=== PATIENT | female | born 1940 | race Caucasian/White ===

== ENCOUNTER → 2017-03-20 | Outpatient (CLI) | payer OTHER | LOC: CIMAGING 10:53 | PROVIDERS: ATTEND Internal Medicine | DX: Z12.31 Encounter for screening mammogram for malignant neoplasm of breast (principal) | CPT/HCPCS: G0202 ==

== ENCOUNTER 2017-12-16 13:04 | Inpatient (IN) | payer OTHER ==
--- NOTE | 2017-12-16 14:34 | EDPHY ---
H & P Time Seen by Provider: 12/16/17 14:33 HPI/ROS: CHIEF COMPLAINT: Bloody diarrhea HISTORY OF PRESENT ILLNESS: Patient had symptoms starting on Sunday afternoon at the grocery store when she had some right-sided abdominal pain lasted 2 hr. Subsequent to that she had about 10 episodes of blood and diarrhea that evening and about 6 or 8 times today. Patient describes mainly blood today and only trace diarrhea. Associated with feeling dizzy and lightheaded and some abdominal bloating but no pain today. Symptoms moderate to severe. REVIEW OF SYSTEMS: Eye: no change in vision ENT: no sore throat Cardiac: no chest pain or syncope Pulmonary: no cough or SOB Abdomen: HPI Musculoskeletal: no back pain Skin: no rash Neuro: no headache Constitutional: no fever : no urinary symptoms A comprehensive 10 point review of systems is otherwise negative aside from elements mentioned in the history of present illness. PAST MEDICAL HISTORY: Appendectomy and hysterectomy, mitral valve prolapse. Family history: Cancer and gets colonoscopy about every 5 years, is due this year, has known diverticuli. Social history: Nonsmoker General Appearance: Alert and conversant, cooperative. Eyes: No scleral icterus. ENT, Mouth: Slightly dry mucous membranes. Respiratory: Normal respiratory effort, breath sounds equal, lungs are clear to auscultation. Cardiovascular: Regular rate and rhythm. Gastrointestinal: Mild right lower quadrant tenderness, no rebound or guarding , bowel sounds present. Neurological: Alert, face symmetric, normal motor and sensory in extremities. Skin: Warm and dry, no rashes. Musculoskeletal: No peripheral edema. Psychiatric: Not agitated. Emergency Department course/MDM: I-STAT and abdominal CT scanning. IV fluid hydration for diarrhea and dizziness. 1450: 57 SBP, hr down to 33. Junctional rate on the monitor without P waves. This is in context of trying to adjust her IV, more likely vasovagal. However she was junctional at 33 with a very low blood pressure felt dizzy and lightheaded, 0.5 mg IV atropine. At 2:55 p.m. Her heart rate is 90 and her blood pressure is 92 systolic. 1613: CT scan shows diverticulosis but no evidence of colitis per Dr. Melchor. More likely acute lower GI bleed. Event above was more likely vagal then primary cardiac. Discussed with patient, she sees Dr. Isma Hemphill, admission with GI consultation 1626: Discussed with Dr. Alexander, will consult. Smoking Status: Never smoked Constitutional: Initial Vital Signs Temperature (C) 36.5 C 12/16/17 13:22 Heart Rate 73 12/16/17 13:22 Respiratory Rate 16 12/16/17 13:22 Blood Pressure 147/107 H 12/16/17 13:22 O2 Sat (%) 96 12/16/17 13:22 O2 Delivery Mode Nasal Cannula O2 (L/minute) 2 Allergies/Adverse Reactions: CERTAIN METALS Allergy (Mild, Uncoded 12/16/17 13:20) Itching HAYFEVER Allergy (Mild, Uncoded 12/16/17 13:20) Other-Enter Comments Home Medications: Medication Instructions Recorded CALCIUM CARBONATE/VITAMIN D3 1 each PO HS 02/26/13 [CALCIUM + D 600 MG TABLET] Glucosamine/Chondro Miner A 1 each PO BID 02/26/13 [Glucosamine-Chondroit Ds Tb] Herbals/Supplements -Info Only 1 each PO AD 02/26/13 Levothyroxine [Synthroid 88 mcg 88 mcg PO DAILY06 02/26/13 (RX)] Methylcellulose [Citrucel] 500 mg PO HS 02/26/13 Multivit with Calcium,Iron,Min 1 each PO DAILY 02/26/13 [Tab A Kailey] Naproxen Sodium [Aleve 220 mg 220 mg PO BID 02/26/13 (OTC)] Krill/Om-3/Dha/Epa/Phospho/Ast 1 each PO DAILY 12/16/17 [Krill Oil 500 mg Softgel] Potassium Cl [Klor-Con] 10 meq PO DAILY 12/16/17 guaiFENesin [Mucinex 600 MG (*)] 600 mg PO DAILY PRN 12/16/17 Medical Decision Making - Diagnostics EKG Interpretation: 12-lead EKG interpreted by me; official reading is in trace master. My interpretation is sinus rate 77 with ventricular trigeminy. Imaging Results: Imaging Impressions Abdomen CT 12/16/17 14:58 Impression: 1. Extensive sigmoid diverticulosis. No diverticulitis or mass. 2. Normal caliber aorta with minimal plaque. No evidence of visceral artery stenosis. 3. Bilateral nephrolithiasis. No hydronephrosis. Findings discussed with Emergency Department physician, Dr. Yves Spencer on November at 1600 hours. Imaging: Discussed imaging studies w/ security control assessor Radiologist Differential Diagnosis: Differential considered including but not limited to GI bleed, infectious colitis, ischemic colitis, hemorrhoids. Consult/Admit Bed Type: [place] for hospitalist Critical Care Time: Critical care time spent by me, Dr. Spencer, exclusively with the care of this patient was 30 minutes, exclusive of PA or FOOT SPECIALIST time and exclusive of separate procedures. The organ system at risk was cardiac with bradycardia and hypotension, possibly vagal or primary cardiac and I ordered IV atropine, IV fluids, diagnostics and admission to hospital to stabilize the patient and prevent worsening of the patient's condition. - Data Points Laboratory Results: Laboratory Results 12/16/17 14:35 12/16/17 14:35 12/16/17 12/16/17 12/16/17 15:00 14:36 14:35 WBC RBC Hgb POC Hgb 12.2 gm/dL L gm/dL (12.6-16.3) Hct POC Hct 36 % L % (38-47) MCV MCH MCHC RDW Plt Count MPV Neut % (Auto) Lymph % (Auto) [place] % (Auto) Eos % (Auto) Baso % (Auto) Nucleat RBC Rel Count Absolute Neuts (auto) Absolute Lymphs (auto) Absolute Monos (auto) Absolute Eos (auto) Absolute Basos (auto) Absolute Nucleated RBC Immature Gran % Immature Gran # POC Sodium 142 mEq/L mEq/L (135-145) Sodium 144 mEq/L mEq/L (135-145) POC Potassium 3.3 mEq/L mEq/L (3.3-5.0) Potassium 3.6 mEq/L mEq/L (3.3-5.0) POC Chloride 104 mEq/L mEq/L (97-110) Chloride 107 mEq/L mEq/L (97-110) Carbon Dioxide 27 mEq/l mEq/l (22-31) Anion Gap 10 mEq/L mEq/L (8-16) POC BUN 16 mg/dL mg/dL (7-23) BUN 17 mg/dL mg/dL (7-23) Creatinine 0.7 mg/dL mg/dL (0.6-1.0) POC Creatinine 0.9 mg/dL mg/dL (0.6-1.0) Estimated GFR > 60 Glucose 85 mg/dL mg/dL (70-100) POC Glucose 101 mg/dL H mg/dL (70-100) Calcium 9.5 mg/dL mg/dL (8.5-10.4) Troponin I < 0.012 ng/mL ng/mL (0.000-0.034) 12/16/17 14:35 WBC 7.88 10^3/uL 10^3/uL (3.80-9.50) RBC 4.44 10^6/uL 10^6/uL (4.18-5.33) Hgb 14.4 g/dL g/dL (12.6-16.3) POC Hgb Hct 41.7 % % (38.0-47.0) POC Hct MCV 93.9 fL fL (81.5-99.8) MCH 32.4 pg pg (27.9-34.1) MCHC 34.5 g/dL g/dL (32.4-36.7) RDW 12.5 % % (11.5-15.2) Plt Count 156 10^3/uL 10^3/uL (150-400) MPV 11.1 fL fL (8.7-11.7) Neut % (Auto) 56.7 % % (39.3-74.2) Lymph % (Auto) 30.5 % % (15.0-45.0) [place] % (Auto) 10.7 % % (4.5-13.0) Eos % (Auto) 1.5 % % (0.6-7.6) Baso % (Auto) 0.5 % % (0.3-1.7) Nucleat RBC Rel Count 0.0 % % (0.0-0.2) Absolute Neuts (auto) 4.47 10^3/uL 10^3/uL (1.70-6.50) Absolute Lymphs (auto) 2.40 10^3/uL 10^3/uL (1.00-3.00) Absolute Monos (auto) 0.84 10^3/uL H 10^3/uL (0.30-0.80) Absolute Eos (auto) 0.12 10^3/uL 10^3/uL (0.03-0.40) Absolute Basos (auto) 0.04 10^3/uL 10^3/uL (0.02-0.10) Absolute Nucleated RBC 0.00 10^3/uL 10^3/uL (0-0.01) Immature Gran % 0.1 % % (0.0-1.1) Immature Gran # 0.01 10^3/uL 10^3/uL (0.00-0.10) POC Sodium Sodium POC Potassium Potassium POC Chloride Chloride Carbon Dioxide Anion Gap POC BUN BUN Creatinine POC Creatinine Estimated GFR Glucose POC Glucose Calcium Troponin I Microbiology Results: MICROBIOLOGY 12/16/17 13:00 Stool Gastrointestinal Tract Panel (PCR) - Final No Organism Detected Medications Given: Discontinued Medications Atropine Sulfate (Atropine 1 Mg/10 Ml Syringe) 0.5 mg IVP EDNOW ONE Stop: 12/16/17 14:55 Last Admin: 12/16/17 14:52 Dose: 0.5 mg Sodium Chloride (Ns) 1,000 mls @ 0 mls/hr IV EDNOW ONE; Wide Open PRN Reason: Protocol Stop: 12/16/17 14:45 Last Admin: 12/16/17 14:45 Dose: 1,000 mls Sodium Chloride (Ns) 1,000 mls @ 0 mls/hr IV EDNOW ONE; Wide Open PRN Reason: Protocol Stop: 12/16/17 16:22 Last Admin: 12/16/17 16:56 Dose: 1,000 mls Point of Care Test Results: 12/16/17 15:00 POC Sodium 142 POC Potassium 3.3 POC Chloride 104 POC BUN 16 POC Creatinine 0.9 POC Glucose 101 H Departure - Departure Disposition: [facility] Inpatient Acute Clinical Impression: Lower GI bleed, Vasovagal reaction Condition: Good
[2017-12-16] MEDS: NS 1,000 ML IV ONE ×2 (14:45→16:56)
[2017-12-16] MEDS ORDERED: ATROPINE SULFATE 1 MG/10 ML SYR ONE (14:51)
[2017-12-16 14:52] LABS: PLATELET COUNT 156 10^3/uL (150-400)
[2017-12-16] MEDS: ATROPINE SULFATE 1 MG/10 ML SYR IVP ONE (14:52)
--- NOTE | 2017-12-16 14:59 | CPEKG ---
Heart Rate: 77 RR Interval: 779 P-R Interval: 176 QRSD Interval: 96 QT Interval: 384 QTC Interval: 435 P [place]: 52 QRS [place]: -26 T Wave [place]: 0 EKG Severity - ABNORMAL ECG - EKG Impression: SINUS RHYTHM EKG Impression: VENTRICULAR TRIGEMINY EKG Impression: BORDERLINE LEFT AXIS DEVIATION EKG Impression: BORDERLINE T ABNORMALITIES, INFERIOR LEADS Electronically Signed By: Yves Spencer 16-Dec-2017 15:06:50
[2017-12-16] MEDS ORDERED: IOPAMIDOL (ISOVUE-300) 100 ML BTL ONE (15:22)
[2017-12-16] MEDS ORDERED: oxyCODONE IR 5 MG TAB PO PRN (19:57)
[2017-12-16] MEDS ORDERED: ACETAMINOPHEN 325 MG TAB PO PRN (19:57)
[2017-12-16] MEDS ORDERED: ONDANSETRON DISINTEGRATING 4 MG TAB PO PRN (19:57)
[2017-12-16] MEDS ORDERED: HYDROmorphONE/DILAUDID 1 MG/ML INJ IVP PRN (19:57)
[2017-12-16] MEDS ORDERED: ONDANSETRON 4 MG/2 ML VIAL IVP PRN (19:57)
[2017-12-16] MEDS ORDERED: guaiFENesin 600 MG TAB.ER PO PRN (19:59)
--- NOTE | 2017-12-16 20:00 | PDGENHP ---
History and Physical - Chief Complaint rectal bleeding - History of Present Illness 78 yo female with family history of colon cancer presents to ED with rectal bleeding. Yesterday she had a sudden sharp pain in her right abdomen. She then had a large bloody stool yesterday, which she describes as red/maroon. She has had 15-20 bloody stools since yesterday. She estimates 1/4 to 1/2 cup of blood per stool. No vomiting, a little nausea. No fevers. She did have some abdominal pain yesterday and a little today, feels "like gas moving around ". Also, some burning sensation. She is taking small meals. She has felt a little dizzy, though a bit better now. No CP or SOB. She notes a strong family h/o colon cancer. Her mother at age 79. She gets colonoscopies every 5 yrs, last c-scope was 5 yrs ago and she is due for repeat colonoscopy now. In the ED, she received 2 L NS. GI was consulted. She is admitted to the hospital for further management. History Information - Allergies/Home Medication List Allergies/Adverse Reactions: CERTAIN METALS Allergy (Mild, Uncoded 12/16/17 13:20) Itching HAYFEVER Allergy (Mild, Uncoded 12/16/17 13:20) Other-Enter Comments Home Medications: CALCIUM CARBONATE/VITAMIN D3 [CALCIUM + D 600 MG TABLET] 1 each PO HS 02/26/13 [ Last Taken 12/15/17] Glucosamine/Chondro Miner A [Glucosamine-Chondroit Ds Tb] 1 each PO BID 02/26/13 [ Last Taken 12/15/17] Herbals/Supplements -Info Only 1 each PO AD 02/26/13 [Last Taken 03/04/13] Levothyroxine [Synthroid 88 mcg (RX)] 88 mcg PO DAILY06 02/26/13 [Last Taken ] Methylcellulose [Citrucel] 500 mg PO HS 02/26/13 [Last Taken 12/15/17] Multivit with Calcium,Iron,Min [Tab A Kailey] 1 each PO DAILY 02/26/13 [Last Taken 12/15/17] Naproxen Sodium [Aleve 220 mg (OTC)] 220 mg PO BID 02/26/13 [Last Taken 12/15/17 ] Krill/Om-3/Dha/Epa/Phospho/Ast [Krill Oil 500 mg Softgel] 1 each PO DAILY [Last Taken 12/15/17] Potassium Cl [Klor-Con] 10 meq PO DAILY 12/16/17 [Last Taken 12/02/17] guaiFENesin [Mucinex 600 MG (*)] 600 mg PO DAILY PRN 12/16/17 [Last Taken Unknown] I have personally reviewed and updated: family history, medical history, social history, surgical history - Past Medical History Additional medical history: mitral valve prolapse. diverticulosis - Surgical History Reports: appendectomy, hysterectomy - Family History Positive for: cancer Additional family history: colon cancer in family - Social History Smoking Status: Never smoked Alcohol Use: None Drug Use: None Additional social history: Lives independently. . Review of Systems Review of Systems: ROS: 10pt was reviewed & negative except for what was stated in HPI & below Physical Exam Physical Exam: Temp Pulse Resp BP Pulse Ox 36.8 C 54 L 14 125/67 H 100 12/16/17 17:16 12/16/17 17:16 12/16/17 17:16 12/16/17 17:16 12/16/17 17:16 O2 (L/minute) 2 Constitutional: no apparent distress Eyes: PERRL Ears, Nose, Mouth, Throat: moist mucous membranes Cardiovascular: regular rate and rhythym Respiratory: no respiratory distress, clear to auscultation Gastrointestinal: normoactive bowel sounds, soft, non-tender abdomen Skin: warm Musculoskeletal: full muscle strength Neurologic: AAOx3 Psychiatric: interacting appropriately Lab Data & Imaging Review 12/16/17 19:58 12/16/17 14:35 WBC 7.88 10^3/uL (3.80-9.50) 12/16/17 14:35 RBC 4.44 10^6/uL (4.18-5.33) 12/16/17 14:35 Hgb 14.4 g/dL (12.6-16.3) 12/16/17 14:35 POC Hgb 12.2 gm/dL (12.6-16.3) L 12/16/17 15:00 Hct 41.7 % (38.0-47.0) 12/16/17 14:35 POC Hct 36 % (38-47) L 12/16/17 15:00 MCV 93.9 fL (81.5-99.8) 12/16/17 14:35 MCH 32.4 pg (27.9-34.1) 12/16/17 14:35 MCHC 34.5 g/dL (32.4-36.7) 12/16/17 14:35 RDW 12.5 % (11.5-15.2) 12/16/17 14:35 Plt Count 156 10^3/uL (150-400) 12/16/17 14:35 MPV 11.1 fL (8.7-11.7) 12/16/17 14:35 Neut % (Auto) 56.7 % (39.3-74.2) 12/16/17 14:35 Lymph % (Auto) 30.5 % (15.0-45.0) 12/16/17 14:35 [place] % (Auto) 10.7 % (4.5-13.0) 12/16/17 14:35 Eos % (Auto) 1.5 % (0.6-7.6) 12/16/17 14:35 Baso % (Auto) 0.5 % (0.3-1.7) 12/16/17 14:35 Nucleat RBC Rel Count 0.0 % (0.0-0.2) 12/16/17 14:35 Absolute Neuts (auto) 4.47 10^3/uL (1.70-6.50) 12/16/17 14:35 Absolute Lymphs (auto) 2.40 10^3/uL (1.00-3.00) 12/16/17 14:35 Absolute Monos (auto) 0.84 10^3/uL (0.30-0.80) H 12/16/17 14:35 Absolute Eos (auto) 0.12 10^3/uL (0.03-0.40) 12/16/17 14:35 Absolute Basos (auto) 0.04 10^3/uL (0.02-0.10) 12/16/17 14:35 Absolute Nucleated RBC 0.00 10^3/uL (0-0.01) 12/16/17 14:35 Immature Gran % 0.1 % (0.0-1.1) 12/16/17 14:35 Immature Gran # 0.01 10^3/uL (0.00-0.10) 12/16/17 14:35 POC Sodium 142 mEq/L (135-145) 12/16/17 15:00 Sodium 144 mEq/L (135-145) 12/16/17 14:35 POC Potassium 3.3 mEq/L (3.3-5.0) 12/16/17 15:00 Potassium 3.6 mEq/L (3.3-5.0) 12/16/17 14:35 POC Chloride 104 mEq/L (97-110) 12/16/17 15:00 Chloride 107 mEq/L (97-110) 12/16/17 14:35 Carbon Dioxide 27 mEq/l (22-31) 12/16/17 14:35 Anion Gap 10 mEq/L (8-16) 12/16/17 14:35 POC BUN 16 mg/dL (7-23) 12/16/17 15:00 BUN 17 mg/dL (7-23) 12/16/17 14:35 Creatinine 0.7 mg/dL (0.6-1.0) 12/16/17 14:35 POC Creatinine 0.9 mg/dL (0.6-1.0) 12/16/17 15:00 Estimated GFR > 60 12/16/17 14:35 Glucose 85 mg/dL (70-100) 12/16/17 14:35 POC Glucose 101 mg/dL (70-100) H 12/16/17 15:00 Calcium 9.5 mg/dL (8.5-10.4) 12/16/17 14:35 Troponin I < 0.012 ng/mL (0.000-0.034) 12/16/17 14:36 Visualized and Interpreted EKG results: Yes EKG Interpretation: Positive for: normal sinsus rhythm EKG additional interpertation: trigeminy Assessment & Plan Assessment: GI bleed - suspect diverticular source given h/o diverticulosis and painless bleeding. Less likely to be brisk UGI source. Hgb remains normal and she is hemodynamically stable. -trend h&h -GI consulted and will see in am -IV PPI -clear liquids for now Hypotension and bradycardia - S/P Atropine in ED after suspected vasovagal event , occurred during manipulation of IV -monitor on telemetry, transfer to PCU -place pacer pads -prn atropine Full code Dispo - obs
[2017-12-17] MEDS: LEVOTHYROXINE 88 MCG TAB PO SCH (07:26)
[2017-12-17] MEDS: POTASSIUM CL 10 MEQ TAB PO SCH (07:26)
[2017-12-17 07:33] VITALS: BP 147/58
[2017-12-17] MEDS: PANTOPRAZOLE SODIUM 40 MG VIAL IVP SCH (09:19)
[2017-12-17 09:54] LABS: INR 1.04 (0.83-1.16); PROTIME(PATIENT) 13.8 SEC (12.0-15.0)
--- NOTE | 2017-12-17 10:36 | GCON ---
[f rep st] CONSULTATION DATE OF CONSULTATION: 12/17/2017 CHIEF COMPLAINT: GI bleed. HISTORY OF PRESENT ILLNESS: I am asked to see this patient in consultation by Anahi Keith for chi complaint of lower GI bleeding. The patient is a 77-year-old with known history of diverticulosis , who developed right upper quadrant pain for a few hours on Sunday that did not resolve. On , she then noted acute onset of bright red blood per rectum associated with some loose stools. With this, she had no significant abdominal pain. She had no diarrhea or constipation prior. No fevers or chills. The pain persisted. She came to the emergency room. Stool PCR was negative. CT scan sh owed significant diverticulosis but no evidence of colitis. This morning she had a normal bowel move ment with no blood in it and overall is feeling well. She does have a family history for colon cancer in her mother. She undergoes colonoscopies every 5 y ears, last colonoscopy in 2012 with no polyps seen. ALLERGIES: Patient has allergies to metals, but she is not sure if she is allergic to nickel. She h as hay fever. MEDICATIONS ON ADMISSION: Include Mucinex, multivitamin, levothyroxine, Naprosyn. PAST MEDICAL HISTORY: Notable for mitral valve prolapse, diverticulosis. SOCIAL HISTORY: She is not a smoker. Does not use alcohol. FAMILY HISTORY: Notable for colon cancer in her mother. REVIEW OF SYSTEMS: I performed a complete review of systems, which was negative except for the perti nent positives and negatives noted above in the HPI. PHYSICAL EXAM: VITAL SIGNS: She is afebrile at 36.5, BP 147/58, pulse 55. GENERAL: She is alert a nd oriented. EYES: No scleral icterus. HEENT: No oral lesions. CARDIOVASCULAR: Regular rhythm. CHEST: Clear to auscultation. ABDOMEN: Positive bowel sounds. Soft, nontender. NEUROLOGICAL: N onfocal. SKIN: No lesions. LABORATORY DATA: On presentation, her hemoglobin was 14.4. It went to 13.1, 11.3, and this morning is 12.0 with a hematocrit of 34.7. BUN, and creatinine were normal. CT scan of the abdomen showed significant diverticulosis, but without diverticulitis or colitis. ASSESSMENT: Patient with self-limited lower gastrointestinal bleed, which is now resolved, now havin g normal bowel movement without any further bleeding. The patient did have an episode of right upper quadrant pain that was self-limited. It is unclear to me that this was associated with this acute event. Differential diagnosis would include diverticula r bleeding, which I think is most likely. Consider infectious colitis, but she did have a negative s tool PCR; and I doubt ischemic colitis as there are no changes to suggest ischemia on CT scan. In regard to right upper quadrant pain, could consider a gallbladder cause, but no evidence of cholec ystitis on CT scan. PLAN: Okay to advance diet. I think patient could be discharged home today, as she is stable withou t any evidence of continued bleeding. Patient is due for her surveillance colonoscopy this year, which she can arrange as an outpatient. I f she should have recurrent GI bleeding, she should return to the emergency room, at which point, cou ld consider colonoscopy versus tag cell scan. If she should have recurrent right upper quadrant pain , would recommend right upper quadrant ultrasound. Thank you for this consult. /[id number]/MODL
--- NOTE | 2017-12-17 12:52 | PDDCSUM ---
Discharge Summary Discharge Summary: DISCHARGE DIAGNOSES: -lower GI bleed, self-limited -mild post hemorrhagic anemia CONSULTANTS: Dr. Noemi Mitchellashley medical [facility] SUMMARY: This patient with no prior history of GI bleeding or any other bleeding disorder came in after some rectal bleeding that started yesterday. The patient reported a large number of of passages of blood that appeared bright red without clots. However she remained hemodynamically stable here, had minimal decrease in her hemoglobin, and did not have any further bleeding here. There has apparently been 1 mild episode of chest discomfort prior to the onset of the bleeding but she has not had any pain since then, there been no fevers. She does take some Aleve for arthritis. Her hospital course has otherwise been uneventful here. She is now eating without any difficulty, up walking in the hallway without any weakness or lightheadedness. There is no bleeding or bruising anywhere. Her blood counts appear stable. She is felt stable at this time for discharge to home. It is felt that this is most likely either diverticular bleed or other benign cause of GI bleeding, unlikely to be ischemic colitis. She does take Aleve and it is recommended she stop taking that at this time. She is due for a surveillance colonoscopy. It was considered to either do colonoscopy now or wait until her bleeding has subsided and do it in the outpatient setting. Between discussion of the patient and the lead fabricator it was felt better to not stir up potentially further bleeding with colonoscopy at this time but do it in the near future when she is healed whenever his bleeding now. PENDING TEST RESULTS: None MEDICATION CHANGES: I have advised her to stop taking Aleve at least until after she has colonoscopy FOLLOW-UP PLAN: She will make an appointment in the near future with Dr. Isma Hemphill for colonoscopy
--- NOTE | 2017-12-19 08:51 | PDMN ---
Medical Necessity Medical necessity: Pt meets IP criteria per MD; est los >2 mn for eval/tx of rectal bleeding with 15-20 bloody stools in the past 24 hrs, abdominal pain, hypotension & bradycardia; admit for further cardiac monitoring, labs, GI consult & IV PPI; hx mitral valve prolapse, diverticulosis; per H&P & order 12/16
--- NOTE | 2017-12-20 22:15 | PQFORM ---
PHYSICIAN QUERY FORM Needs Your Response This query form is being sent to you to assure this patient record is coded properly. Please respond to the question below: SENIOR TECHNICAL ARCHITECT QUESTION: Dr Ashley Can Patients Post Hemorrhagic Anemia be further clarified as Acute Blood Loss Anemia ? ___ Yes ___ No ___ Other (Please Specify ) ___ Unable to determine Thank You Cate NEWMAN Stubber INSTRUCTIONS FOR RESPONSE: Answer question by clicking on the "Edit Document" button. Move cursor to area below the stars. When complete, hit "Save." Click on the "Sign" button, then click "Sign" again. Type in your PIN and hit "Enter." yes MTDD
== END 2017-12-17 12:56 | disposition home or self-care (01) | DRG 378 ==
LOC: OBSVTOIN 17:02 → F3E 17:09 → F2N 22:31
PROVIDERS: ADMIT Hospitalist; ATTEND Hospitalist
DX: K62.5 Hemorrhage of anus and rectum (principal); R10.11 Right upper quadrant pain; D62 Acute posthemorrhagic anemia; I34.1 Nonrheumatic mitral (valve) prolapse; Z80.0 Family history of malignant neoplasm of digestive organs
CPT/HCPCS: 82947-QW; 96374; J0461; Q9967

== ENCOUNTER 2017-12-27 09:06 | Day surgery (SDC) | payer OTHER ==
[2017-12-27] MEDS ORDERED: LR 1,000 ML IV ONE (09:37)
--- NOTE | 2017-12-27 10:23 | PDANEPAE ---
ANE History of Present Illness 77 year old female w/ PMHx of hypothyroidism, anxiety and depression presents for EGD & colonoscopy. ANE Past Medical History - Cardiovascular History Hx Hypertension: No Hx Arrhythmias: No Hx Chest Pain: No Hx Coronary Artery / Peripheral Vascular Disease: No Hx CHF / Valvular Disease: No Hx Palpitations: No Cardiovascular History Comment: SLOW HEARTRATE (FORMER RUNNER) - Pulmonary History Hx COPD: No Hx Asthma/Reactive Airway Disease: No Hx Recent Upper Respiratory Infection: No Hx Oxygen in Use at Home: No Hx Sleep Apnea: No Sleep Apnea Screening Result - Last Documented: Negative - Neurologic History Hx Cerebrovascular Accident: No Hx Seizures: No Hx Dementia: No - Endocrine History Hx Diabetes: No Hypothyroid: Yes Hyperthyroid: No Obesity: no Endocrine History Comment: HYPOTHYROID - Renal History Hx Renal Disorders: Yes Renal History Comment: PESSARY FOR LEAKAGE WITH EXERCISE. PREV REPAIR - Liver History Hx Hepatic Disorders: No - Neurological & Psychiatric Hx Hx Neurological and Psychiatric Disorders: Yes Neurological / Psychiatric History Comment: ANXIETY/DEPRESSION - Cancer History Hx Cancer: No - Congenital Disorder History Hx Congenital Disorders: No - GI History Hx Gastrointestinal Disorders: Yes Gastrointestinal History Comment: HOSPITALIZED 11/2017 FOR GI BLEED. DIVERTICULOSIS. DYSPEPSIA - Other Health History Other Health History: THROMBOCYTOPENIA. TINNITUS. OSTEOARTHRITIS/PENIA. EASILY BRUISES. HX OF ALIYA KNEE FX'S - Chronic Pain History Chronic Pain: Yes (KNEES,LOWER BACK,HANDS) - Surgical History Prior Surgeries: LT TOTAL HIP 2012. RT CATARACT. HYSTERECTOMY/CYSTOCELE AND RECTOCELE. APPENDECTOMY. TONSILLECTOMY. RT KNEE SCOPE. RT ROTATOR CUFF. LUMBAR LAMINECTOMY ANE Review of Systems Review of systems is: negative Review of Systems: - Exercise capacity Exercise capacity: >=4 METS METS (RN): 4 METS ANE Patient History - Allergies Allergies/Adverse Reactions: CERTAIN METALS Allergy (Mild, Uncoded 12/16/17 13:20) Itching HAYFEVER Allergy (Mild, Uncoded 12/16/17 13:20) Other-Enter Comments - Home Medications Home medications: home medication list seen and reviewed Home Medications: CALCIUM CARBONATE/VITAMIN D3 [CALCIUM + D 600 MG TABLET] 1 each PO HS 02/26/13 [ Last Taken 12/23/17] Glucosamine/Chondro Miner A [Glucosamine-Chondroit Ds Tb] 1 each PO BID 02/26/13 [ Last Taken 12/23/17] Herbals/Supplements -Info Only 1 each PO AD 02/26/13 [Last Taken 12/23/17] Levothyroxine [Synthroid 88 mcg (*)] 88 mcg PO DAILY06 02/26/13 [Last Taken 02/06 01:30] Methylcellulose [Citrucel] 500 mg PO HS 02/26/13 [Last Taken 12/23/17] Multivit with Calcium,Iron,Min [Tab A Kailey] 1 each PO DAILY 02/26/13 [Last Taken 12/23/17] Krill/Om-3/Dha/Epa/Phospho/Ast [Krill Oil 500 mg Softgel] 1 each PO DAILY [Last Taken 12/23/17] guaiFENesin [Mucinex 600 MG (*)] 600 mg PO PRN 12/16/17 [Last Taken 12/23/17] Nexium DAILY 12/21/17 [Last Taken 12/25/17] - NPO status NPO Status: no food or drink >8 hours NPO Since - Liquids (Date): 12/27/17 NPO Since - Liquids (Time): 01:30 NPO Since - Solids (Date): 12/26/17 NPO Since - Solids (Time): 12:00 - Anes Hx Anes Hx: no prior problems - Smoking Hx Smoking Status: Never smoked Marijuana use: No - Alcohol Use Alcohol Use: Occasionally - Family Anes Hx Family Anes Hx: neg - N/A ANE Labs/Vital Signs - Vital Signs Vital Signs: reviewed preoperatively; see RN documention for details Blood Pressure: 138/79 Heart Rate: 66 Respiratory Rate: 16 O2 Sat (%): 93 Height: 165.1 cm Weight: 63.503 kg ANE Physical Exam - Airway Neck exam: FROM Mallampati Score: Class 2 Mouth exam: normal dental/mouth exam - Pulmonary Pulmonary: no respiratory distress - Cardiovascular Cardiovascular: regular rate and rhythym - ASA Status ASA Status: II ANE Anesthesia Plan Anesthesia Plan: GA with mask Total IV Anesthesia: Yes
--- NOTE | 2017-12-27 10:34 | PDGENHP ---
History & Physical Chief Complaint: CC: Familiy hx colon cancer History of Present Illness: Recent admit to hostprial with GI bleed. Self limited. ? Diverticular. Had RUQ pain. Presents for EGD and Colonscopy. Pertinent Past, Social, Family History: Mitral Valve prolapse. Diverticulosis Relevant Physical Exam: Lungs clear. COR normal s1 s2
[2017-12-27] MEDS ORDERED: PROPOFOL/EMULSION 500 MG/50 ML BOTTLE IV ONE (10:52)
--- NOTE | 2017-12-27 11:06 | GIREPORT ---
[facility] Surgical Services - Endoscopy Department Patient Name: Sole Paniagua Procedure Date: 12/27/2017 10:49 AM Patient Type: Outpatient Attending MD/ ER Physician: Isma Hemphill MD Procedure: Upper GI endoscopy Indications: Abdominal pain in the right upper quadrant, Hematochezia Providers: Isma Hemphill MD Medicines: Propofol per Anesthesia Complications: No immediate complications. Description of Procedure: After obtaining informed consent, the endoscope was passed under direct vision. Throughout the procedure, the patient's blood pressure, pulse, and oxygen saturations were monitored continuously. The Endoscope was intro duced through the mouth, and advanced to the second part of duodenum. The [facility] er GI endoscopy was accomplished without difficulty. The patient tolerated th e procedure well. Findings: The examined esophagus was normal. A small hiatal hernia was present. Diffuse mildly erythematous mucosa without bleeding was found in the ga stric antrum. Biopsies were taken with a cold forceps for histology and Helicobacter pylori testing. The examined duodenum was normal. Estimated Blood Loss: Estimated blood loss: none. Post Op Diagnosis: - Normal esophagus. - Small hiatal hernia. - Erythematous mucosa in the antrum. Biopsied. - Normal examined duodenum. Recommendation: - Await pathology results. - Perform a colonoscopy today. - Thank you for allowing me to participate in the care of your patient. Attending Participation: I personally performed the entire procedure. Isma Hemphill MD Isma Hemphill MD 12/27/2017 11:06:08 AM This report has been signed electronicallyIsma Hemphill MD Number of Addenda: 0 Note Initiated On: 12/27/2017 10:49 AM [email or web address]
[2017-12-27] MEDS ORDERED: ONDANSETRON 4 MG/2 ML VIAL IVP PRN (11:08)
[2017-12-27] MEDS ORDERED: NALOXONE HCL 0.4 MG/ML INJ IVP PRN (11:08)
[2017-12-27] MEDS ORDERED: LR 500 ML IV PRN (11:08)
[2017-12-27] MEDS ORDERED: fentaNYL 100 MCG/2 ML INJ IVP PRN (11:08)
[2017-12-27] MEDS ORDERED: epHEDrine SULFATE 10 MG/ML SYR ONE (11:21)
--- NOTE | 2017-12-27 11:32 | GIREPORT ---
[facility] Surgical Services - Endoscopy Department Patient Name: Sole Paniagua Procedure Date: 12/27/2017 10:50 AM Patient Type: Outpatient Attending MD/ ER Physician: Isma Hemphill MD Procedure: Colonoscopy Indications: Screening in patient at increased risk: Colorectal cancer in mother 60 or older Providers: Isma Hemphill MD Medicines: Propofol per Anesthesia Complications: No immediate complications. Description of Procedure: After obtaining informed consent, the scope was passed under direct vis ion. Throughout the procedure, the patient's blood pressure, pulse, and oxyg en saturations were monitored continuously. The Colonoscope with irrigatio n channel was introduced through the anus and advanced to the cecum, identified by appendiceal orifice and ileocecal valve. The colonoscopy was performed with moderate difficulty due to multiple diverticula in the c olon. Successful completion of the procedure was aided by using manual pressu re. The patient tolerated the procedure well. The quality of the bowel preparation was good. The ileocecal valve, appendiceal orifice, and rec saritha were photographed. Findings: Multiple small and large-mouthed diverticula were found in the sigmoid colon and descending colon. Many small and large-mouthed diverticula were found in the ascending co farzana. The exam was otherwise without abnormality on direct and retroflexion v iews. Estimated Blood Loss: Estimated blood loss: none. Post Op Diagnosis: - Diverticulosis in the sigmoid colon and in the descending colon. - Diverticulosis in the ascending colon. - The examination was otherwise normal on direct and retroflexion views . - No specimens collected. Recommendation: - Patient has a contact number available for emergencies. The signs and symptoms of potential delayed complications were discussed with the pat ient. Return to normal activities tomorrow. Written discharge instructions we re provided to the patient. - High fiber diet. - Continue present medications. - No repeat colonoscopy due to age. - Thank you for allowing me to participate in the care of your patient. Attending Participation: I personally performed the entire procedure. Isma Hemphill MD Isma Hemphill MD 12/27/2017 11:32:38 AM This report has been signed electronicallyIsma Hemphill MD Number of Addenda: 0 Note Initiated On: 12/27/2017 10:50 AM Total Procedure Duration Time 0 hours 22 minutes 53 seconds [email or web address]
[2017-12-27 13:01] VITALS: BP 150/82
--- NOTE | 2017-12-27 14:42 | POSTANESTH ---
Post Anesthetic Evaluation Cardiovascular Status: Normal, Stable, Similar to Pre-Op Cond Respiratory Status: Normal, Stable, Similar to Pre-op Cond. Level of Consciousness/Mental Status: Can Participate in Eval, Alert and Oriented Pain Control: Adequate, Prn Tx Ordered Nausea/Vomiting Control: Adequate, Prn Tx Ordered Complications Possibly Related to Anesthesia: None Noted
== END 2017-12-27 13:00 | disposition home or self-care (01) ==
LOC: FSGY 09:06
PROVIDERS: ATTEND Internal Medicine Gastroenterology
PROC: 0DB68ZX Excision of Stomach, Via Natural or Artificial Opening Endoscopic, Diagnostic (ICD-10-PCS; principal; 2017-12-27 10:30)
PROC: 0WJP8ZZ Inspection of Gastrointestinal Tract, Via Natural or Artificial Opening Endoscopic Approach (ICD-10-PCS; 2017-12-27 10:30)
DX: K29.50 Unspecified chronic gastritis without bleeding (principal); K57.30 Diverticulosis of large intestine without perforation or abscess without bleeding; K44.9 Diaphragmatic hernia without obstruction or gangrene; E03.9 Hypothyroidism, unspecified; R00.1 Bradycardia, unspecified; F41.9 Anxiety disorder, unspecified; K92.2 Gastrointestinal hemorrhage, unspecified; Z80.0 Family history of malignant neoplasm of digestive organs
CPT/HCPCS: J2704

== ENCOUNTER → 2018-04-05 | Outpatient (CLI) | payer OTHER | LOC: CIMAGING 10:14 | PROVIDERS: ATTEND Internal Medicine | DX: Z12.31 Encounter for screening mammogram for malignant neoplasm of breast (principal) ==

== ENCOUNTER 2018-09-11 05:49 | Inpatient (IN) | payer OTHER ==
[2018-09-11] MEDS ORDERED: ACETAMINOPHEN 325 MG TAB PO ONE (06:12)
[2018-09-11] MEDS ORDERED: FAMOTIDINE 20 MG TAB PO ONE (06:12)
[2018-09-11] MEDS ORDERED: DEXAMETHASONE 4 MG/ML VIAL IVP ONE (06:12)
[2018-09-11] MEDS ORDERED: ceFAZolin 2 GM/DEXTROSE 100 ML IV ONE (06:12)
--- NOTE | 2018-09-11 06:22 | PDHPUP ---
History & Physical Update H&P update statement: This history and physical update is based on an assessment of the patient which was completed after admission or registration (within 24 hours), but prior to the surgery/procedure. H&P update: H&P reviewed & patient examined, no change in patient's condition since H&P completed
[2018-09-11] MEDS ORDERED: LR 1,000 ML IV ONE (06:36)
[2018-09-11] MEDS ORDERED: TRANEXAMIC ACID 3,000 MG/50 ML BAG IRR ONE ×2 (06:49→06:52)
[2018-09-11] MEDS ORDERED: MIDAZOLAM 2 MG/2 ML VIAL IVP ONE (07:26)
--- NOTE | 2018-09-11 07:26 | PDANEPAE ---
ANE History of Present Illness Right hip pain, here for R [facility] ANE Past Medical History - Cardiovascular History Hx Hypertension: No Hx Arrhythmias: No Hx Chest Pain: No Hx Coronary Artery / Peripheral Vascular Disease: No Hx CHF / Valvular Disease: No Hx Palpitations: No Cardiovascular History Comment: SLOW HEARTRATE (FORMER RUNNER) - Pulmonary History Hx COPD: No Hx Asthma/Reactive Airway Disease: No Hx Recent Upper Respiratory Infection: No Hx Oxygen in Use at Home: No Hx Sleep Apnea: No Sleep Apnea Screening Result - Last Documented: Negative - Neurologic History Hx Cerebrovascular Accident: No Hx Seizures: No Hx Dementia: No - Endocrine History Hx Diabetes: No Endocrine History Comment: hypothyroidism - Renal History Hx Renal Disorders: Yes Renal History Comment: PESSARY FOR LEAKAGE WITH EXERCISE. PREV REPAIR - Liver History Hx Hepatic Disorders: No - Neurological & Psychiatric Hx Hx Neurological and Psychiatric Disorders: Yes Neurological / Psychiatric History Comment: ANXIETY/DEPRESSION - Cancer History Hx Cancer: No - Congenital Disorder History Hx Congenital Disorders: No - GI History Hx Gastrointestinal Disorders: Yes Gastrointestinal History Comment: EGD and Colonoscopy with [facility] 12/2017. HOSPITALIZED 11/2017 FOR GI BLEED. DIVERTICULOSIS. DYSPEPSIA - Other Health History Other Health History: THROMBOCYTOPENIA. TINNITUS. EASILY BRUISES. wears glasses - Chronic Pain History Chronic Pain: Yes (right hip) - Surgical History Prior Surgeries: 12/27/17 EGD and Colonoscopy with [facility]. 03/18/13 left [facility] with Debbie. RT CATARACT. HYSTERECTOMY/CYSTOCELE AND RECTOCELE. APPENDECTOMY. TONSILLECTOMY. RT KNEE SCOPE. RT ROTATOR CUFF. LUMBAR LAMINECTOMY ANE Review of Systems Review of Systems: - Exercise capacity METS (RN): 4 METS ANE Patient History - Allergies Allergies/Adverse Reactions: CERTAIN METALS Allergy (Mild, Uncoded 09/11/18 06:13) Itching HAYFEVER Allergy (Mild, Uncoded 09/11/18 06:13) SINUS PROB, ITCHY EYES - Home Medications Home Medications: Glucosamine/Chondro Miner A [Glucosamine-Chondroit Ds Tb] 1 each PO BID 02/26/13 [ Last Taken 09/04/18] Herbals/Supplements -Info Only 1 each PO AD 02/26/13 [Last Taken 09/04/18] Levothyroxine [Synthroid 88 mcg (*)] 88 mcg PO DAILY06 02/26/13 [Last Taken ] Acetamn/Diphenhydramine 500/25 [Tylenol PM (*)] 1 each PO HS PRN 08/26/18 [Last Taken 09/04/18] Cholecalciferol Vit D3 [Vitamin D3 (*)] 1,000 units PO DAILY 08/26/18 [Last Taken 09/04/18] Meloxicam 7.5 mg PO DAILY 08/26/18 [Last Taken 09/04/18] Multivitamins [Multivitamin (*)] 1 each PO DAILY 08/26/18 [Last Taken 09/04/18] Sertraline HCl [Zoloft 50mg (*)] 50 mg PO DAILY 08/26/18 [Last Taken 09/11/18] Vitamin B Complex [Vitamin B Complex (OTC)] 1 each PO HS 08/26/18 [Last Taken ] - NPO status NPO Since - Liquids (Date): 09/11/18 NPO Since - Liquids (Time): 04:30 NPO Since - Solids (Date): 09/10/18 NPO Since - Solids (Time): 19:00 - Smoking Hx Smoking Status: Never smoked - Family Anes Hx Family Hx Anesthesia Complications: none ANE Labs/Vital Signs - Vital Signs Blood Pressure: 176/92 Heart Rate: 68 Respiratory Rate: 16 O2 Sat (%): 93 Height: 162.6 cm Weight: 64.2 kg ANE Physical Exam - Airway Neck exam: decreased ROM Mallampati Score: Class 2 Mouth exam: normal dental/mouth exam - Pulmonary Pulmonary: no respiratory distress, no rales or rhonchi - Cardiovascular Cardiovascular: regular rate and rhythym, no murmur, rub, or gallop - ASA Status ASA Status: II ANE Anesthesia Plan Anesthesia Plan: GA with mask, spinal Total IV Anesthesia: Yes
[2018-09-11] MEDS ORDERED: BUPIVACAINE/DEXTROSE 7.5MG/ML 2 ML SPINAL AMP SP ONE (07:42)
[2018-09-11] MEDS ORDERED: DEXAMETHASONE 4 MG/ML VIAL ONE (07:42)
[2018-09-11] MEDS ORDERED: PHENYLEPHRINE 10 MG/ML SDV ONE (07:42)
[2018-09-11] MEDS ORDERED: PHENYLEPHRINE HCL 100 MCG/ML SYR ONE (07:42)
[2018-09-11] MEDS ORDERED: LIDOCAINE 2% 100 MG/5 ML SYR ONE (07:42)
[2018-09-11] MEDS ORDERED: PROPOFOL/EMULSION 500 MG/50 ML BOTTLE IV ONE (07:42)
[2018-09-11] MEDS ORDERED: ONDANSETRON 4 MG/2 ML VIAL ONE (07:42)
[2018-09-11] MEDS ORDERED: fentaNYL 100 MCG/2 ML INJ ONE (07:43)
[2018-09-11] MEDS ORDERED: ROPIVACAINE 0.2% 80 MG, EPINEPHrine 0.2 MG, KETOROLAC TROMETHAMINE 30 MG in SYRINGE 0 ML IU ONE (08:00)
[2018-09-11] MEDS ORDERED: TRANEXAMIC ACID 3,000 MG in NS (SYRINGE) 50 ML IRR ONE (08:00)
[2018-09-11] MEDS ORDERED: ACETAMINOPHEN 500 MG TAB PO PRN (09:06)
[2018-09-11] MEDS ORDERED: NALOXONE HCL 0.4 MG/ML INJ IVP PRN (09:06)
[2018-09-11] MEDS ORDERED: LR 500 ML IV PRN (09:06)
[2018-09-11] MEDS ORDERED: fentaNYL 100 MCG/2 ML INJ IVP PRN (09:06)
[2018-09-11] MEDS ORDERED: MEPERIDINE 25 MG/0.5 ML AMP IVP PRN (09:06)
[2018-09-11] MEDS ORDERED: oxyCODONE IR 5 MG TAB PO PRN (09:06)
[2018-09-11] MEDS ORDERED: DIPHENOXYLATE/ATROPINE LOMOTIL 1 TAB PO PRN (09:42)
[2018-09-11] MEDS ORDERED: BISACODYL 10 MG SUPP PR PRN (09:42)
[2018-09-11] MEDS ORDERED: ONDANSETRON 4 MG/2 ML VIAL IVP PRN (09:42)
[2018-09-11] MEDS ORDERED: CYCLOBENZAPRINE 10 MG TAB PO PRN (09:42)
[2018-09-11] MEDS ORDERED: PROMETHAZINE HCL 25 MG SUPPR PR PRN (09:42)
[2018-09-11] MEDS ORDERED: LACTULOSE 20 GM/30 ML UDCUP PO PRN (09:42)
[2018-09-11] MEDS ORDERED: TEMAZEPAM 15 MG CAP PO PRN (09:42)
[2018-09-11] MEDS ORDERED: PROMETHAZINE HCL 25 MG/ML INJ IVP PRN (09:42)
[2018-09-11] MEDS ORDERED: MAGNESIUM HYDROXIDE 30 ML UDCUP PO PRN (09:42)
[2018-09-11] MEDS ORDERED: POLYETHYLENE GLYCOL 3350 17 GM PKT PO PRN (09:42)
[2018-09-11] MEDS ORDERED: diphenhydrAMINE 25 MG CAP PO PRN (09:42)
[2018-09-11] MEDS ORDERED: METOCLOPRAMIDE 10 MG/2 ML VIAL IVP PRN (09:42)
[2018-09-11] MEDS ORDERED: ONDANSETRON DISINTEGRATING 4 MG TAB PO PRN (09:42)
--- NOTE | 2018-09-11 09:42 | POSTOPPROG ---
Post Op Note Date of Operation: 09/11/18 Surgeon: Ashleigh Lewis Mid Level Java Developer: Kavita Lewis PA-C and Ellyn Mcknight PA-C Anesthesiologist: dr. burgess Anesthesia: Spinal Pre-op Diagnosis: right hip OA Post-op Diagnosis: same Indication: right hip pain Procedure: R TYRELL ant approach Findings: severe hip OA Inf/Abcess present in the surg proc area at time of surgery?: No EBL: 100-500
--- NOTE | 2018-09-11 09:47 | POSTANESTH ---
Post Anesthetic Evaluation Cardiovascular Status: Normal, Stable Respiratory Status: Normal, Stable Level of Consciousness/Mental Status: Can Participate in Eval, Mildly Sleepy, Arousable Pain Control: Adequate, Prn Tx Ordered Nausea/Vomiting Control: Adequate, Prn Tx Ordered Complications Possibly Related to Anesthesia: None Noted (moving bilateral lower extremities)
[2018-09-11] MEDS ORDERED: LR 1,000 ML IV SCH (10:00)
--- NOTE | 2018-09-11 11:06 | PDMN ---
Medical Necessity Medical necessity: [facility] IP only surgery; cpt 23819 [facility]
[2018-09-11] MEDS: ACETAMINOPHEN 325 MG TAB PO SCH ×2 (12:04→17:41)
--- NOTE | 2018-09-11 13:59 | SOAPPROG ---
SOAP Progress Note Assessment/Plan: Assessment: unable to leave OR to assess but per phone and nurse report patient alert, talking, no mental status changes or other issues at the time of the call. VS are now stable Plan: 09/11/18 13:13 Discussed the need and criteria for calling a rapid response to which nursing said she would if she needed to and that she was not concerns about her status t the time of the call I spoke with PACU and there were no interventions during her stay with them and she et all DC criteria prior to DC to the floor. Her BPs were running in the 140 /70s and there was no sign of hypotension prior to sending her to the floor. The report would lead me to believe the patient suffered a vasovagal incident with a sudden positional change from laying to standing from which she recovered rapidly and without complication with nml VS at the time of the call. I ordered TBerg and 1L fluid bolus and said i could see the patient when i was out of the OR. The incident was discussed with Dr. Lewis in the OR who agreed with the probable vasovagal incident Objective: Vital Signs Temp Pulse Resp BP Pulse Ox 35.9 C L 55 L 16 72/43 L 93 09/11/18 13:11 09/11/18 13:11 09/11/18 13:11 09/11/18 13:11 09/11/18 13:11 09/10/18 09/11/18 09/12/18 05:59 05:59 05:59 Intake Total 930 Output Total 900 Balance 30 ICD10 Worksheet Patient Problems: Problems Problem Status Onset Lower GI bleed Acute Vasovagal reaction Acute
--- NOTE | 2018-09-11 15:04 | CPEKG ---
Test Reason : OPEN Blood Pressure : / mmHG Vent. Rate : 050 BPM Atrial Rate : 048 BPM P-R Int : 181 ms QRS Dur : 097 ms QT Int : 514 ms P-R-T Axes : 042 -22 009 degrees QTc Int : 469 ms Sinus rhythm Borderline left axis deviation Abnormal R-wave progression, early transition Borderline T abnormalities, anterior leads Confirmed by David Mondragon ([id number]) on 09/11/2018 3:03:55 PM Referred By: Ashleigh Lewis Confirmed By:David Mondragon
--- NOTE | 2018-09-11 15:44 | PDHOSCONS ---
History and Physical - Chief Complaint Syncope - History of Present Illness Sole Paniagua is a 78 yo F with a PMHx of lower GI Bleed, hypothyroidism who is s/p R total hip arthroplasty this morning who had an episode of syncope this afternoon. Patient reports that she finished eating lunch, sat up, and all of a sudden lost consciousness. At that time her HR decreased to 30's and BP was 50 /30. She denies any preceding chest pain, palpitations, shortness of breath. She reports feeling slightly lightheaded. She states she has a hx of vasovagal episodes that occur after procedes. At time of examination, patient feels well without any complaints. History Information - Allergies/Home Medication List Allergies/Adverse Reactions: CERTAIN METALS Allergy (Mild, Uncoded 09/11/18 06:13) Itching HAYFEVER Allergy (Mild, Uncoded 09/11/18 06:13) SINUS PROB, ITCHY EYES Home Medications: Glucosamine/Chondro Miner A [Glucosamine-Chondroit Ds Tb] 1 each PO BID 02/26/13 [ Last Taken 09/04/18] Herbals/Supplements -Info Only 1 each PO AD 02/26/13 [Last Taken 09/04/18] Levothyroxine [Synthroid 88 mcg (*)] 88 mcg PO DAILY06 02/26/13 [Last Taken ] Acetamn/Diphenhydramine 500/25 [Tylenol PM (*)] 1 each PO HS PRN 08/26/18 [Last Taken 09/04/18] Cholecalciferol Vit D3 [Vitamin D3 (*)] 1,000 units PO DAILY 08/26/18 [Last Taken 09/04/18] Meloxicam 7.5 mg PO DAILY 08/26/18 [Last Taken 09/04/18] Multivitamins [Multivitamin (*)] 1 each PO DAILY 08/26/18 [Last Taken 09/04/18] Sertraline HCl [Zoloft 50mg (*)] 50 mg PO DAILY 08/26/18 [Last Taken 09/11/18] Vitamin B Complex [Vitamin B Complex (OTC)] 1 each PO HS 08/26/18 [Last Taken ] I have personally reviewed and updated: family history, medical history, social history, surgical history - Past Medical History Additional medical history: mitral valve prolapse. diverticulosis - Surgical History Reports: appendectomy, hysterectomy - Family History Positive for: cancer Additional family history: colon cancer in family - Social History Smoking Status: Never smoked Additional social history: Lives independently. . Review of Systems Review of Systems: ROS: 10pt was reviewed & negative except for what was stated in HPI & below Physical Exam Physical Exam: Temp Pulse Resp BP Pulse Ox 36.6 C 25 L 17 100/53 L 95 09/11/18 14:27 09/11/18 15:00 09/11/18 14:27 09/11/18 15:00 09/11/18 14:27 Constitutional: no apparent distress Eyes: PERRL Ears, Nose, Mouth, Throat: moist mucous membranes Cardiovascular: regular rate and rhythym, no murmur, rub, or gallop Respiratory: no respiratory distress Gastrointestinal: soft, non-tender abdomen Skin: warm Musculoskeletal: pain with ROM Neurologic: AAOx3 Psychiatric: interacting appropriately Lab Data & Imaging Review 09/11/18 13:30 Sodium 136 mEq/L (135-145) 09/11/18 13:30 Potassium 3.4 mEq/L (3.5-5.2) L 09/11/18 13:30 Chloride 109 mEq/L (97-110) 09/11/18 13:30 Carbon Dioxide 22 mEq/l (22-31) 09/11/18 13:30 Anion Gap 5 mEq/L (6-14) L 09/11/18 13:30 BUN 14 mg/dL (7-23) 09/11/18 13:30 Creatinine 0.6 mg/dL (0.6-1.0) 09/11/18 13:30 Estimated GFR > 60 09/11/18 13:30 Glucose 171 mg/dL (70-100) H 09/11/18 13:30 POC Glucose 158 mg/dL (70-100) H 09/11/18 13:22 Calcium 7.4 mg/dL (8.5-10.4) L 09/11/18 13:30 Assessment & Plan Assessment: Vasovagal Syncope - In setting of surgery this AM, patient has hx of these episodes - HR and BP decreased to 30's and 50/30 respectively - Patient soon recovered consciousness without any associated symptoms - EKG performed showing sinus bradycardia, QTc 469 at upper limit of normal - Would recommend continuing to monitor patient on telemetry while IP - IVF as needed, consider checking orthostatics vital signs - Avoid QT prolonging agents Sinus Bradycardia - HR remains low since admission, also reviewed admission in 11/2017 which also demonstrates sinus luciana - Monitor on telemetry as above to evaluate for signs of heart block, pauses Hypokalemia - K 3.4 on lab draw this afternoon - Will give 40 mg PO Potassium this afternoon - Repeat K in the AM Hypothyroidism - Continue home synthroid Thank you for the consult. We will continue to follow along throughout patient' s hospitalization
[2018-09-11] MEDS: ceFAZolin 2 GM/DEXTROSE 100 ML IV SCH (15:49)
[2018-09-11] MEDS ORDERED: POTASSIUM CL 20 MEQ/15 ML UDCUP PO ONE (15:50)
[2018-09-11] MEDS: oxyCODONE IR 5 MG TAB PO PRN ×2 (17:06→23:23)
[2018-09-11] MEDS: ASPIRIN 81 MG CHEWABLE TAB PO SCH (20:39)
[2018-09-11] MEDS: FAMOTIDINE 20 MG TAB PO SCH (20:39)
[2018-09-11] MEDS: SENNOSIDES/DOCUSATE SODIUM TAB PO SCH (20:41)
[2018-09-12] MEDS: ACETAMINOPHEN 325 MG TAB PO SCH ×3 (00:11→13:12)
[2018-09-12] MEDS: ceFAZolin 2 GM/DEXTROSE 100 ML IV SCH (00:11)
[2018-09-12] MEDS ORDERED: LEVOTHYROXINE 88 MCG TAB PO SCH (06:00)
--- NOTE | 2018-09-12 08:43 | SOAPPROG ---
SOAP Progress Note Assessment/Plan: Assessment: Patient is doing well POD 1 s/p R [facility] Pain management: pain is well controlled on oral pain meds. VTE ppx: recommend aspirin 81 mg BID for 4 weeks, cont VERONICA and SCDs Anemia: level is expected initially postop.Continue to monitor vasovagal episodes: patient had two episodes of LOC yesterday, appreciate hospitalist follow up and assistance managing. Patient states she is improving. BP and HR are much higher and within normal for patient. D/c planning: Patient may need another night in the hospital pending how she is able to participate with PT today and has no lightheadedness with activity. Patient must be released from PT before discharge to home. Recommend nurse call us if patient would like to d/c to home later today postop urinary retention: straight cath'd yesterday, resolved today. Plan: 09/12/18 08:40 Subjective: patient is doing well today, denies SOB, chest pain and N/V Objective: Vital Signs Temp Pulse Resp BP Pulse Ox 36.8 C 74 16 116/49 L 98 09/12/18 04:00 09/12/18 04:00 09/12/18 04:00 09/12/18 04:00 09/12/18 04:00 Laboratory Results 09/12/18 05:28 09/12/18 05:28 09/11/18 09/12/18 09/13/18 05:59 05:59 05:59 Intake Total 2340 1450 Output Total 2150 Balance 190 1450 RLE: incision dressing is clean and dry, NVI, +pf/df ICD10 Worksheet Patient Problems: Problems Problem Status Onset Primary localized osteoarthritis of right hip Acute Lower GI bleed Acute Vasovagal reaction Acute
[2018-09-12] MEDS ORDERED: SERTRALINE HCL 50 MG TAB PO SCH (09:00)
[2018-09-12] MEDS: SENNOSIDES/DOCUSATE SODIUM TAB PO SCH (09:12)
[2018-09-12] MEDS: FAMOTIDINE 20 MG TAB PO SCH (09:13)
[2018-09-12] MEDS: ASPIRIN 81 MG CHEWABLE TAB PO SCH (09:13)
[2018-09-12] MEDS: oxyCODONE IR 5 MG TAB PO PRN (09:20)
--- NOTE | 2018-09-12 13:05 | HOSPPROG ---
Hospitalist Progress Note Assessment/Plan: 78 yo F pod 2 from [facility]. postop course c/b vasovagal syncope: :no events on tele this sequence of events (bradycardia and hypotension that spontaneously resolves) c/w vasovagal no further workup ABLA: per ortho pain: well controlled proph: VTE proph per ortho dispo: hospital medicine will sign off ok to dc tele call w ?'s Subjective: tele: no events ( interp by me) Objective: Vital Signs Temp Pulse Resp BP Pulse Ox 36.9 C 63 18 109/50 L 90 L 09/12/18 11:24 09/12/18 11:24 09/12/18 11:24 09/12/18 11:24 09/12/18 11:24 Laboratory Results 09/12/18 05:28 09/12/18 05:28 09/11/18 09/12/18 09/13/18 05:59 05:59 05:59 Intake Total 2340 1450 Output Total 2150 Balance 190 1450 - Physical Exam Constitutional: no apparent distress, not in pain Eyes: PERRL, anicteric sclera Ears, Nose, Mouth, Throat: moist mucous membranes, hearing normal Cardiovascular: regular rate and rhythym, no murmur, rub, or gallop, No systolic murmur Respiratory: no respiratory distress, no rales or rhonchi Gastrointestinal: normoactive bowel sounds, soft, non-tender abdomen Genitourinary: no bladder fullness, No mendez in urethra Skin: warm, normal color Musculoskeletal: full muscle strength ICD10 Worksheet Patient Problems: Problems Problem Status Onset Primary localized osteoarthritis of right hip Acute Lower GI bleed Acute Vasovagal reaction Acute
[2018-09-12 13:14] VITALS: BP 122/51
--- NOTE | 2018-09-16 10:46 | GDS ---
[f rep st] DISCHARGE SUMMARY ADMISSION DIAGNOSIS: Right hip osteoarthritis. DISCHARGE DIAGNOSIS: Right hip osteoarthritis. PROCEDURE: Right total hip arthroplasty. VTE PROPHYLAXIS: Recommend aspirin 81 mg twice daily for 4 weeks. BRIEF DESCRIPTION OF HOSPITAL STAY: Patient was admitted for an elective joint arthroplasty. The pa guera tolerated the procedure well and has passed physical therapy. The patient was given appropriat e antibiotic prophylaxis and venous thromboembolism prophylaxis. The patient's pain was well control led on oral pain medication, patient was holding down food, and had urinated. Decision was made to d ischarge the patient. The patient was given post-operative prescriptions pre-operatively. PLAN: Please follow up with Dr. Lewis's office 10/03 at 9:30 a.m. /[id number]/MODL
--- NOTE | 2018-09-17 09:09 | GOP ---
[f rep st] OPERATIVE REPORT DATE OF OPERATION: 09/11/2018 SURGEON: Mallory Lewis MD MANAGEMENT REP: 1. ESTELLA Amaya. 2. ESTELLA Pennington. ANESTHESIA: Spinal. PREOPERATIVE DIAGNOSIS: Right hip osteoarthritis. POSTOPERATIVE DIAGNOSIS: Right hip osteoarthritis. PROCEDURE PERFORMED: Total hip arthroplasty with x-ray. FINDINGS: ESTIMATED BLOOD LOSS: 200 cc. INDICATIONS: The patient has progressively worsening arthritis of the hip which has failed medical m anagement. The patient understands the treatment options including continued non-operative care and has selected surgical intervention. The patient has decided to undergo total hip arthroplasty via th e direct anterior approach, understanding the risks of the procedure including, but not limited to, n eurovascular injury, infection, persistent pain, component wear and loosening, deep venous thrombosis , pulmonary embolism, limb length inequality, hip instability (including dislocation), and intra-oper ative fractures. DESCRIPTION OF PROCEDURE: After proper identification of the patient including verification and parvin ing the surgical site, the patient was brought to the operating room and placed in the supine positio n. All bony prominences were well padded. Anesthesia was induced without complication and intraveno us prophylactic antibiotics were administered prior to skin incision. The operative leg was placed in the Trumpf Arch table extension and the well leg in a Yellofin leg ho lder. The patient was prepped and draped in the usual sterile fashion. The C-arm was draped for int ra-operative fluoroscopy to check acetabular position, femoral component position including leg lengt h and femoral offset. Attention was then drawn to surgical exposure of the hip. An incision was made with a #10 Bard [place] r blade starting 3 cm lateral and 3 cm distal to the anterior superior iliac spine measuring 8-10 cm and coursing distally toward the greater trochanter. The skin and subcutaneous tissues were divided sharply down to the fascia ray. The fascia ray was incised in line with the skin incision exposing the underlying tensor fascia ray muscle. The muscle was bluntly elevated from the fascia and the f irst extracapsular Cobra retractor was placed laterally at the junction of the superior femoral neck and greater trochanter. The lateral femoral circumflex vessels were identified, cauterized, and divi ded with the Aquamantys bipolar cautery. The deep investing fascia of the TFL was divided to allow p geovanni mobilization of the muscle preventing damage during the retraction. The reflected head of the rectus femoris muscle was elevated off the anterior hip capsule and a medial Cobra retractor was plac ed just proximal to the lesser trochanter. The anterior capsulotomy was made sharply from the superolateral acetabulum to the saddle junction of the superior femoral neck and greater trochanter, then coursing inferomedial towards the lesser troc hanter. The retractors were then placed in the intracapsular position for femoral neck osteotomy. C orresponding to pre-operative templating, the osteotomy was made with the oscillating saw carefully p rotecting the greater trochanter and soft tissues. The femoral head was removed from the acetabulum with a corkscrew and confirmed to be severely arthritic with exposed bone, deformity and osteophytes. Similar findings were confirmed in the acetabulum. The Arch table extension was then placed in 40 degrees external rotation. Attention was then drawn to the acetabular preparation. After placement of the anterior and posterio r Cobra retractors outside the labrum and intracapsular, the circumferential labrum was removed sharp ly. The foveal contents were then removed and hemostasis obtained with cautery. The first reamer selected was sized using the removed femoral head. Reaming began with medialization and then commenced in 2 mm increments at 45 degrees of abduction and 15 degrees of anteversion using fluoroscopic navigation. Reaming ceased 1 mm less than the definitive acetabular component and sonia esponded to the pre-operative templating. The final acetabular component was inserted using fluorosc opy to achieve proper orientation yielding excellent purchase and stability in the acetabulum. The f inal acetabular liner was then placed and its seating confirmed. Attention was then turned to the femur. The Arch table extension was placed in extension and adducti on, delivering the osteotomized femoral neck into the wound. A 2-pronged femoral elevator was placed at the calcar and another at the tip of the greater trochanter. The posterolateral capsule was rele ased with cautery allowing mobilization of the femur lateral and anterior for preparation. The exter nal rotators were visualized and preserved. A curette and rongeur were used to open the starting poi nt for broaching. Serial broaching started with the #0 broach and ended with the broach that exhibit ed excellent fit in the proximal femur. A change in pitch during mallet strikes was accompanied by t he inability to advance the broach any further. The trial reduction was performed and fluoroscopic n avigation was utilized to check limb length. Adjustments were made to equalize limb length according ly. After the final trials were accepted they were removed and the wound was copiously lavaged. The femo ral component was seated to the same depth as the final broach and the femoral head was impacted onto the clean trunnion. The hip was then reduced for the final time and once more fluoroscopy was used to check that limb length equality was achieved. The wound was irrigated and closed in layers, the fascia ray with 2-0 Quill, the subcutaneous tissue with 2-0 Quill, and the skin with Dermabond. Sterile dressings were applied. Final sharps and spon ge counts were accurate. The patient was then transferred to a hospital bed and brought [facility] in stable condition. IMPLANTS: Accolade II size 4 at 127. Acetabular component a Trident II 48 mm. Head is a Biolox Del ta 32 mm -4. Liner is a Trident X3, 32 mm. /[id number]/[id number]
== END 2018-09-12 15:15 | disposition home or self-care (01) | DRG 470 ==
LOC: F3N 05:49
PROVIDERS: ADMIT Orthopaedic Surgery; ATTEND Orthopaedic Surgery
PROC: 0SR904Z Replacement of Right Hip Joint with Ceramic on Polyethylene Synthetic Substitute, Open Approach (ICD-10-PCS; principal; 2018-09-11 08:00)
DX: M16.11 Unilateral primary osteoarthritis, right hip (principal); R55 Syncope and collapse; R33.9 Retention of urine, unspecified; D62 Acute posthemorrhagic anemia; E03.9 Hypothyroidism, unspecified; R00.1 Bradycardia, unspecified; E87.6 Hypokalemia
CPT/HCPCS: 97161-GP; J0171; J0690; J1100; J1885; J2001; J2250; J2370; J2405; J2704; J2795; J3010